=== PATIENT | female | born 2000 | race Caucasian/White ===

== ENCOUNTER 2023-09-10 12:56 | Emergency (ER) | payer BC ==
[~2023-09-10] VITALS: Ht 154.9 cm; Wt 49.5 kg
[2023-09-10 13:04] VITALS: BP 128/86; TEMP 97.9
[2023-09-10] MEDS ORDERED: Ondansetron 4 MG/2 ML VIAL IV ONE (15:30)
[2023-09-10] MEDS ORDERED: NS 1,000 ML IV ONE (15:30)
[2023-09-10] MEDS ORDERED: Morphine 4 MG/ML VIAL IV ONE (15:30)
[2023-09-10 15:56] LABS: HEMOGLOBIN 14.8 g/dl (12.5-16.0); MEAN CELL VOLUME 86 fl (80.0-100.0); MEAN CORPUSCULAR HEMOGLOBIN 30 pg (27-31); MEAN CORPUSCULAR HGB CONC 34 g/dl (33.0-37.0); MEAN PLATELET VOLUME 9.3 fl (7.4-10.4); PLATELET COUNT 313 K/mm3 (130-400); RED BLOOD COUNT 5.01 M/mm3 (4.10-5.30); REDCELL DISTRIBUTION WIDTH-CV 11.7 % (11.5-14.5)
[2023-09-10 16:15] LABS: ALBUMIN 4.5 g/dL (3.5-5.0); BILIRUBIN,TOTAL 0.7 mg/dL (0.2-1.2); C-REACTIVE PROTEIN 0.11 mg/dL (0.00-0.50); CREATININE, serum 0.8 mg/dL (0.57-1.11); MAGNESIUM 2.2 mg/dL (1.6-2.6); TOTAL PROTEIN 8.4 g/dl (6.2-8.1)
[2023-09-10 16:37] LABS: BAND 10 % (0-10); LYMPHOCYTE 3 % (20.0-51.0); NEUTROPHILS 87 % (42.0-75.2)
[2023-09-10 16:38] LABS: ANISOCYTOSIS 1+; PLATELET ESTIMATE NORMAL (NORMAL)
[2023-09-10 17:40] LABS: URINE APPEARANCE CLOUDY (CLEAR/HAZY); URINE BLOOD NEGATIVE (NEGATIVE); URINE COLOR Dark Yellow (YELLOW); URINE GLUCOSE NEGATIVE (NEGATIVE); URINE KETONE 3+ (NEGATIVE); URINE NITRATE NEGATIVE (NEGATIVE); URINE PROTEIN(semi-quant) TRACE (NEGATIVE)
[2023-09-10 18:38] LABS: COLLECTION METHOD CLEAN CATCH
[2023-09-10] MEDS ORDERED: ZOFRAN ODT4 MG PO (18:41)
[2023-09-10] MEDS ORDERED: BENTYL 20MG20 MG/TAB PO (18:41)
[2023-09-10] MEDS ORDERED: ROXICODONE 55 MG/TAB PO (18:41)
[2023-09-10] MEDS ORDERED: Dicyclomine 10 MG CAP PO ONE (18:45)
[2023-09-10 18:55] VITALS: PULSE 80
== END 2023-09-10 18:56 | disposition home or self-care (01) ==
LOC: COL.ER 12:56
PROVIDERS: Emergency Medicine
DX: K08.89 Other specified disorders of teeth and supporting structures (principal); K59.00 Constipation, unspecified
CPT/HCPCS: J2270; J2405; J7030